=== PATIENT | male | born 1985 | race Caucasian/White ===

== ENCOUNTER 2025-02-19 20:55 | Emergency (ER) | payer OTHER, SELFPAY ==
[2025-02-19 20:57] VITALS: BP 174/99
--- NOTE | 2025-02-19 21:17 | ED.GENMED ---
History of Present Illness
General
Chief Complaint: Male Genito-Urinary Symptoms
Time Seen by Provider: 02/19/25 21:17
History of Present Illness
History of Present Illness:
TIME OF INITIAL ENCOUNTER: 9:20 PM
HPI: Around 5 hours ago, the patient noted a palpable lesion to the left testicle. This does not cause any significant pain however he was worried about it. He came in here for further evaluation. There have been no fevers. He has no other
symptoms. He was concerned about the possibly that this could be a malignancy.
EXAM:
GENERAL: Well appearing in no distress
HEENT: Moist oral mucosa
: There is a small cystic lesion which is not significantly tender to the medial aspect of the left testicle
NEUROLOGIC: Excellent strength all extremities, no coordination deficits
PSYCHIATRIC: Appropriate mental status, normal insight and judgement
EXTREMITIES: Nontender, no edema, moves all extremities equally
SKIN: No rash, no lesions
NUMBER AND COMPLEXITY OF PROBLEMS ADDRESSED AT THE ENCOUNTER
� Chronic conditions affecting care: Denies any significant past medical history
� Acute Exacerbation and/or Progression of Chronic Illness: This is an acute problem
� Differential Diagnosis includes: Testicular cyst, testicular mass, hydrocele, varicocele, no clinical evidence for torsion
AMOUNT AND/OR COMPLEXITY OF DATA TO BE REVIEWED AND ANALYZED
� I performed an independent evaluation of and my interpretation is:
EKG:
CT:
X-rays:
Laboratory Studies:
Other: Ultrasound shows a 0.4 cm cystic lesion of the left testicle, no sign of torsion or sign of infection
� Review of other/old records: No old records available for review
� Clinical information was obtained by an independent historian: None needed
� Prescriptions/Medications Considered but not given:
� Further testing considered but not performed:
RISK OF COMPLICATIONS AND/OR MORBIDITY OR MORTALITY OF PATIENT MANAGEMENT
� Social determinants of health affecting care: Lives at home
� Discussion with other providers:
� Escalation of care including admission/observation vs risk of discharge considered: Ultrasound shows small testicular cyst on the left side. BP spontaneously improved. I have given him contact information for local urologist
if needed.
ANY OTHER UPDATES:
Phy Exam
Physical Exam
Physical Exam:
See HPI
Course
Orders/Labs/Results
Orders:
Orders
02/19/25 21:22
US Scrotum Urgent
Comment:
Reason For Exam: palpable cystic type lesion inferomedial L testis
Vital Signs
Initial and Last Documented VS:
Initial Vital Signs
Temp Pulse Resp BP Pulse Ox
36.8 C 112 20 174/99 98
02/19/25 20:57 02/19/25 20:57 02/19/25 20:57 02/19/25 20:57 02/19/25 20:57
Last Documented Vital Signs
Temp Pulse Resp BP Pulse Ox
36.8 C 85 20 123/75 95
02/19/25 20:57 02/19/25 22:41 02/19/25 20:57 02/19/25 22:41 02/19/25 22:41
*Critical Care Note
Total Time (30-74mins, 75-104mins- exclusive of procedures): Not Applicable
ED Attending Note
-
Portions of this chart may have been created with voice recognition software.� Occasional wrong word or��sound alike� substitutions may have occurred due to the inherent limitations of voice recognition software.
Discharge Plan
Departure
Patient Disposition: Home (Routine Discharge)
Date of Disposition: 02/19/25
Time of Disposition: 23:11
Patient with high blood pressure during this ER visit?: Yes
Discharge Problem:
Cyst of testis
Instructions: BLOOD PRESSURE
Referrals:
NONE,* [Family Provider] -
Samir Velazquez MD [Active] -
Activity Restrictions/Additional Instructions:
The ultrasound shows a 0.4 cm cyst at the left testicle. There is no mass or sign of cancer. There is no sign of hydrocele or varicocele. If you have ongoing concerns, you could follow-up with urology such as Dr. Velazquez. Return here if worse or
other concerns.
Interventions
Interventions:
*General Assessment Last Done: 02/19/25 20:57
ED-Male Genitourinary Assessment Last Done: 02/19/25 22:15
Discharge Date and Time
Print Language: OMANI
[2025-02-19 22:41] VITALS: BP 123/75
== END 2025-02-19 23:16 | disposition home or self-care (01) ==
LOC: EMR 20:55
PROVIDERS: EMERGENCY PHYSICIAN Emergency Medicine
DX: N44.2 Benign cyst of testis (principal)
CPT/HCPCS: 99284; 76870; 93976